=== PATIENT | female | born 1995 | race Caucasian/White ===

== ENCOUNTER 2023-09-17 10:02 | Outpatient (CLI) | payer BC, SELFPAY | END 2023-09-17 10:03 | disposition home or self-care (01) | LOC: NFLDREF 10-06 11:30 | PROVIDERS: PCP Family Medicine; Referring Provider Family Medicine; Visit Provider Advanced Practice Midwife | DX: Z34.03 Encounter for supervision of normal first pregnancy, third trimester (principal); Z83.49 Family history of other endocrine, nutritional and metabolic diseases | CPT/HCPCS: 84443; 86592 ==

== ENCOUNTER 2023-11-12 08:56 | Outpatient (CLI) | payer BC, SELFPAY | END 2023-11-12 08:57 | disposition home or self-care (01) | LOC: NFLDREF 11-29 16:06 | PROVIDERS: PCP Family Medicine; Referring Provider Family Medicine; Visit Provider Advanced Practice Midwife | DX: Z34.03 Encounter for supervision of normal first pregnancy, third trimester (principal); Z3A.36 36 weeks gestation of pregnancy | CPT/HCPCS: 87081; 87653 ==

== ENCOUNTER 2023-12-09 19:52 | Inpatient (IN) | payer BC, SELFPAY ==
[2023-12-09] VITALS (17 sets, daily range): BP systolic 87–133; BP diastolic 50–83; PULSE 81–126; RESP 20; TEMP 36.8; O2SAT 92–100; BMI 35.4
[2023-12-09] MEDS: AMPICILLIN 2 GM in 0.9 % SODIUM CHLORIDE Mini-bag 100 ML IVPB (20:04)
--- NOTE | 2023-12-09 20:33 | P.LDBA_ITS ---
Subjective History of Present Illness Date Seen: 12/09/23 Narrative: Patient is being admitted to Labor and Delivery for labor. She has had contractions since approximately 1100 today and around 1700 she reports more painful contractions. Unable to get an IV started on admission, she has declined GBS treatment at this time as a result. She is a 28 year old at 40.1 weeks gestation. Her full history and physical was dictated by Kellen on 11/19/23. Please see this for details. Patient also is requesting minimal or no cervical exams per her plan so no exam has been done at this time. Specific Issues/Plans partner Sid LEEpsychiatric lpn at [facility] of care at 22 wks from [place] OB H&P done by ALIZA Foreman on 11/19/23 IOL for post-dates scheduled 12/14 # ADHD not currently medicated, has used Adderall in the past for treatment # Hx Depression/Anxiety no current meds- hx multiple medications attempted discussed referral for med management if needed in Currently sees therapist uses hydroxyzine PRN # Iron deficiency hx pt did not think it was anemia, no supplement currently # Family hx of thyroid disorder. TSH at 28wks: 0.982, no repeat needed #GBS +, recommend antibiotics in labor OB Labs: ? Blood type: A+, antibody screen negative. ? Hgb: 14.3 ? Platelets: 221 ? Rubella: Immune ? Varicella: Immune Treponema: negative ? HBsAg: non-reactive ? Hep C: negative HIV: negative ? UC: negative GC/Chlamydia: negative/negative ? Pap (11/2022): negative ?NILM/ neg HPV Genetic screening: declined ? IMAGING: ? 1st trimester: Single live IUP with sonographic gestational age 6wks 6 days ?abd sonographic due date 12/08/2023 Anatomy scan: Normal OB ultrasound with concordance of clinical and sonographic dating. No intrinsic abnormalities noted on anatomic survey. ?Others: NA OB - Problem Based A/P Additional Plan (1) 40 weeks gestation of : Status: Acute (2) Distress from pain in labor: Status: Acute Plan Assessment:?? at 40.1 weeks gestation?? GBS positive? Patient is coping well with challenges of labor.?? Labor type: Spontaneous, Active labor? Category 1 FHR pattern.? complicated by: # ADHD not currently medicated, has used Adderall in the past for treatment # Hx Depression/Anxiety no current meds- hx multiple medications attempted discussed referral for med management if needed in Currently sees therapist uses hydroxyzine PRN # Iron deficiency hx pt did not think it was anemia, no supplement currently # Family hx of thyroid disorder. TSH at 28wks: 0.982, no repeat needed #GBS +, recommend antibiotics in labor Plan:?? * ?Admit to L & D? * IV access: unable to place and patient is declining at this time * Monitoring per policy: intermittent? * Candidate for analgesia of choice.? Planning unmedicated labor for pain management * Desires waterbirth.? Consent signed and Hep C negative * Expectant management at this time * GBS prophylaxis recommended at this time, patient is declining? * Patient encouraged to reposition and ambulate to promote physiologic labor and . * Anticipate ? OB Exam Physical Exam Vital signs: Pulse BP 89 133/83 12/09/23 19:46 12/09/23 19:46 Narrative: Vitals Reviewed Constitutional:? Alert and oriented x3 HEENT:? Normocephalic, atraumatic Neck:? Supple Lungs:? Clear to auscultation bilaterally Heart:? Regular rate and rhythm, no murmur, rub or gallop Abdomen:? Soft, nontender, and gravid. Vertex by Bolivar's, confirmed with cervical exam. Extremities:? No edema or erythema Cervix: deferred, per pt request, vertex by Bolivar's, membranes intact NST: 135 bpm/moderate variability/+accelerations/no decelerations/moderate contractions Detailed Labor and Delivery Exam Patient Gravid: Yes
--- NOTE | 2023-12-09 21:43 | PC.NURSE ---
Patient presented to the ED in labor without prior notification. Pt appeared to be in active labor, but declined cervical exam. Patient is GBS positive, so prophylactic antibiotics were prepared per ALIZA Figueroa. ROSA Cruz, ROSA Parker, and ROSA Thakur attempted to place IV to run prophylactic antibiotics, but attempts were not successful. The final attempt appeared successful, but when the infusion was started, the line infiltrated. The patient then moved into the birthing tub. ROSA Parker requested general warehouse associate Huseyin to come to the bedside to continue IV attempts. At this point, the patient stated she did not want another IV attempt. With Bruce Figueroa present, RN explained the risk of infection, and that per protocol the RN's could not make the decision to not give the antibiotics. The patient verbalized understanding, and stated that she did not want the medication, and declined the treatment. Bruce Figueroa present in conversation and aware of patient's choice.
--- NOTE | 2023-12-09 22:51 | P.OBPN_ITS ---
Subjective Date Seen: 12/09/23 Narrative: ?Emily has been coping well with labor pain/contractions. ?Sid and Shefali her supervisor lending activities are with her for support. ?She would like to try get an epidural for comfort and pain management at this time. She has been laboring in the waterbirth tub using nitrous for approximately 2.5 hours. She is currently up in the bathroom and nursing is attempting another IV start. ? Objective Exam: VSS, afebrile General Appearance:? Calm, cooperative. ?No acute distress. ? Psychiatric Exam: Alert and oriented, appropriate affect Abdomen: Gravid Ctx: ?Q 2-4 min apart. ? ? ?Strong FHTs: ?intermittently monitored FHR 150 with no audible decelerations. ? ? SVE: 8.5/90/+2 Membranes: Intact ? Vital Signs: Last Vital Signs Temp 98.2 F 12/09/23 21:00 Pulse 86 12/09/23 21:00 Resp 20 12/09/23 21:00 BP 113/76 12/09/23 21:00 Plan Plan: Assessment:?? at 40.1 gestation?? GBS positive Patient is coping well with challenges of labor.?? Labor type: Spontaneous, Active labor? ? complicated by: # ADHD not currently medicated, has used Adderall in the past for treatment # Hx Depression/Anxiety no current meds- hx multiple medications attempted discussed referral for med management if needed in Currently sees therapist uses hydroxyzine PRN # Iron deficiency hx pt did not think it was anemia, no supplement currently # Family hx of thyroid disorder. TSH at 28wks: 0.982, no repeat needed #GBS +, recommend antibiotics in labor Plan:?? Obtain IV access and prepare for epidural Antibiotic prophylaxis treatment per protocol once IV placed Continue with routine intrapartum cares as ordered.?? Patient encouraged to move and change positions to promote physiologic labor and .?? Nonpharmacologic comfort measures per patient preference. Candidate for analgesia of choice if desired. Requesting epidural at this time Anticipate progress to NVD. ?
[2023-12-09] MEDS: LACTATED RINGERS 1000 ML 1,000 ML 1200 ML IV (23:05)
[2023-12-09] MEDS: LIDOCAINE 2% (PF) 5 ML VIAL EPIDURAL (23:16)
[2023-12-09 23:20] LABS: Basophils Percent Auto 0.1 % (0.0-3.0); Eosinophils Percent Auto 0.1 % (0.0-7.0); Hematocrit 41.8 % (33.0-51.0); Hemoglobin* 14.6 gm/dL (12.0-16.0); Immature Granulocytes Pct Auto 1.6 %; Lymphocytes Percent Auto 9.8 % (20-44); Mean Corpuscular HGB Conc 35 gm/dL (32-36); Mean Corpuscular Hemoglobin 31 pg (26-34); Mean Corpuscular Volume 89 fL (80-100); Monocytes Percent Auto 3.4 % (0.0-11.0); Platelet Count* 187 K/uL (140-440); RDW Coefficient of Variation % 12.9 % (11.5-15.5); Red Blood Count 4.69 m/uL (4.00-5.20); White Blood Count* 15.81 K/uL (4.50-11.00)
[2023-12-09 23:25] LABS: Slide Review Reflex No
[2023-12-09] MEDS: ROPIVACAINE 0.2% 100 ml 100 ML 12 MG EPIDURAL (23:25)
[2023-12-09] MEDS: fentaNYL 250 MCG/5 ML inj 100 MCG EPIDURAL (23:25)
--- NOTE | 2023-12-09 23:36 | P.ANBPRC_ITS ---
PFSH PFSH Surgical History [place] teeth extracted ?K08.409 - Partial loss of teeth, unspecified cause, unspecified class (ICD- 10) Family History Paternal Grandmother Breast cancer Stroke Maternal Grandmother Lung cancer Colon cancer Father Coronary artery disease Myocardial infarction Alcohol dependence Social History What is your current living situation?: I presently have a place to live Problems where you live: no known problems In the past 12 months, utilities in danger of being shut off: no In past 12 months, lack of transportation kept you from medical appts, meetings, work, or getting things needed for daily living: no In the past 12 mos, have been you worried that your food would run out before you had money to buy more?: never true In the past 12 mos, the food you bought just didn't last and you didn't have money to buy more?: never true Smoking Status: Never smoker How often does anyone, including family, friends and others, physically hurt you : never How often does anyone, including family, friends and others, insult or talk down to you: never How often does anyone, including family, friends and others, threaten you with harm: never How often does anyone, including family, friends and others, scream or curse at you: never Little interest or pleasure in doing things: not at all Feeling down, depressed, or hopeless: not at all Meds Home Medications and Allergies Home Medications ?Medication ?Instructions ?Recorded ?Confirmed ?Type docosahexaenoic acid 200 mg mg PO 08/06/23 12/08/23 History capsule ( DHA) hydroxyzine HCl 25 mg tablet 25 mg PO Q8H PRN anxiety 08/06/23 12/08/23 History magnesium 200 mg tablet 200 mg PO QDAY 08/06/23 12/08/23 History omega-3 fatty acids 1,000 mg 1,000 mg PO QDAY 08/06/23 12/08/23 History capsule Allergies Allergy/AdvReac Type Severity Reaction Status Date / Time No Known Drug Allergies Allergy Verified 12/08/23 10:48 Results Labs Labs: Laboratory Results - last 24 hr 12/09/23 23:00 WBC 15.81 H RBC 4.69 Hgb 14.6 Hct 41.8 MCV 89 MCH 31 MCHC 35 RDW Coeff of Mary 12.9 Plt Count 187 Neut % (Auto) 85.0 H Lymph % (Auto) 9.8 L [place] % (Auto) 3.4 Eos % (Auto) 0.1 Baso % (Auto) 0.1 Neut # (Auto) 13.40 H Lymph # (Auto) 1.50 [place] # (Auto) 0.50 Eos # (Auto) 0.00 Baso # (Auto) 0.00 Abs Immat Gran (auto) 0.30 Imm/Tot Granulo (auto) 1.6 Vital Signs Vital Signs: Last Vital Signs Temp 98.2 F 12/09/23 21:00 Pulse 115 H 12/09/23 23:31 Resp 20 12/09/23 21:00 BP 107/58 L 12/09/23 23:31 Pulse Ox 93 12/09/23 23:35 Anesthesia Procedures Epidural Insertion Patient Location: OB Start Time: 23:00 Stop Time: 23:59 Start Date: 12/09/23 Stop Date: 12/09/23 Reason for Block: primary anesthetic Patient Position: sitting Performed By: Mikhail Lucia Preanesthetic Checklist: IV checked, risks and benefits discussed, surgical consent, monitors and equipment checked, pre-op evaluation, timeout performed and anesthesia consent Prep: chlorhexidine gluconate Monitoring: blood pressure monitoring, secured entrance monitor, continuous pulse oximetry and heart rate Approach: midline Vertebral Space: lumbar (1-5) Needle Type: Tuohy needle Injection Technique: continuous catheter Needle gauge: 17 Needle Length (cm): 10 cm Needle Insertion Depth (cm): 6 Catheter Gauge: 19 Catheter Type: multi-orifice Catheter at skin depth (cm): 12 Test Dose Result: negative and lidocaine 1.5% with epinephrine 1 to 200,000 Events: other
[2023-12-09] MEDS: PHENYLEPHRINE 100 MCG/ML SYRINGE IVP (23:55)
[2023-12-10] VITALS (40 sets, daily range): BP systolic 94–134; BP diastolic 51–84; PULSE 72–187; RESP 16–18; TEMP 36.6–37.4; O2SAT 96–98
[2023-12-10] MEDS: PHENYLEPHRINE 100 MCG/ML SYRINGE IVP (00:04)
[2023-12-10] MEDS: LACTATED RINGERS 1000 ML 1,000 ML 125 ML IV (01:39)
--- NOTE | 2023-12-10 02:26 | PM.OBPNL ---
Subjective Date Seen: 12/10/23 Narrative: ?Emily is coping well with labor pain/contractions. ?Sid and Shefali are with her for support. ?She would like to continue with her epidural for comfort and pain management.?She has now had two large pads changed with bright red bleeding. Cervical exam found bulging bag of fluid which ruptured with exam with clear fluid, complete dilation and +2 station. Objective Exam: VSS, afebrile General Appearance:? Calm, cooperative. ?No acute distress. ? Psychiatric Exam: Alert and oriented, appropriate affect Abdomen: Gravid Ctx: ?Q 2-3 min apart. ? ? ?Strong FHTs: ?Baseline: 135. ? ? Variability: moderate. ?Accels: +. ? ?Decels: ?variables. SVE: 10/100/+2 Membranes: ?SROM clear fluid Vital Signs: Last Vital Signs Temp 98.9 F 12/10/23 02:03 Pulse 85 12/10/23 02:10 Resp 18 12/10/23 02:03 BP 101/60 12/10/23 02:10 Pulse Ox 93 12/09/23 23:35 Plan Plan: Assessment:?? at 40.2 wks gestation?? GBS positive Patient is coping well with challenges of labor.?? Labor type: Spontaneous, Active labor? Category 1 FHR pattern.? complicated by: # ADHD not currently medicated, has used Adderall in the past for treatment # Hx Depression/Anxiety no current meds- hx multiple medications attempted discussed referral for med management if needed in Currently sees therapist uses hydroxyzine PRN # Iron deficiency hx pt did not think it was anemia, no supplement currently # Family hx of thyroid disorder. TSH at 28wks: 0.982, no repeat needed #GBS +, recommend antibiotics in labor Labor complicated by: vaginal bleeding with advanced dilation GBS positive treated with once dose of antibiotics Plan:?? Patient to begin pushing, close monitoring of bleeding and FHR changes Antibiotic prophylaxis treatment per protocol Continue with routine intrapartum cares as ordered.?? Patient encouraged to move and change positions to promote physiologic labor and .?? Epidural infusing per protocol Anticipate progress to NVD. ?
[2023-12-10] MEDS: AMPICILLIN 1 GM in 0.9 % SODIUM CHLORIDE Mini-bag 100 ML IVPB (02:40)
[2023-12-10] MEDS: CALCIUM CARBONATE 500 MG CHEW PO (02:58)
[2023-12-10] MEDS: OXYTOCIN 30 unit/500 ML in NS 30 UNIT/500 ML BAG 300 UNIT IVPB (04:44)
--- NOTE | 2023-12-10 05:36 | W.PM.OBVAGDE ---
OB Procedure Vag Delivery Mother Details Mother Details: The patient is a 28 year-old, 1, Para 0, admitted on 12/09/23 at 40.2 weeks gestation. : 1 Para: 1 Weeks Gestation: 40.2 Admission Date: 12/09/23 Additional Details Amniotic Membrane Status: SROM Amniotic Membrane Rupture Date: 12/10/23 Amniotic Membrane Rupture Time: 02:19 Amniotic Membrane Fluid Description: Clear Analgesia/Anesthesia Type: Epidural Waterbirth: No Pitcoin: Yes (for AMTSL) Labor Onset: 18:00 Complete: 02:19 Pushin:25 Heart: heart tones during second stage were continuously monitored. Moderate variability with variable decelerations. FHR was rising during last 30 minutes of pushing with baseline of 160. Delivery Details Delivery Date: 12/10/23 Delivery Time: 04:34 Route of delivery: Infant Gender: Female Infant Viability: Alive; Heart Rate Present Position at Delivery: OA Delivery Details: 28?y.o?at 40.2 weeks.? Emily arrived to the unit with strong contractions since 1700. She labored in the waterbirth tub initially. There was difficulty placing an IV at first and she was poked approximately 6 times. After this she declined additional attempts for IV placement and GBS antibiotics. After laboring in the tub for approximately 3 hours she then requested to have an epidural. Once she had an IV placed she was started on GBS prophylaxis per protocol. She then labored in bed with her epidural until I was called to the bedside for concerns about vaginal bleeding. RN reported patient had had bright red vaginal bleeding since epidural was placed and had needed to change a large white pad twice since bleeding had started. FHR continued to be Category 1 and on exam she was complete/100/+2. She then started pushing. ? ? She became complete at 0219.??She pushed in right and left side, hands and knees and semi fowlers positions effectively.??? At the end of pushing stage FHR became tachycardic for approximately the last 30 minutes with FHR baseline 160. Continued to have moderate variability and occasional variables. ? Spontaneous vaginal delivery at 0434 of?a viable? female .??Delivered in vertex OA position.??Shoulders delivered easily.? Spontaneous cry noted.??Infant placed on maternal abdomen.??Cord?was clamped and cut after a 5+ minute delay.??Nose and mouth were bulb suctioned.? Shoulder dystocia: no? Nuchal cord: yes times one, reduced? Meconium stained?fluid: no? Water : no? ? ? 8 at 1 minute and 9 at 5 minutes.? Weight is pending. ? Placenta delivered spontaneously and?complete?at 0443 with a?3 vessel?cord.?? Bleeding controlled with fundal massage and?pitocin?for AMTSL.? ? Mother and were stable after delivery.? ? Lacerations:? 2nd degree with extension up the left side of labia, repaired with 3-0?vicryl.?? Bleeding?post delivery?was: minimal. ?The fundus was firm to palpation.? Blood loss: 100?mL.? Blood loss measurement type: QBL? ? ? Sponge,?lap?and needles counts are correct.? Mother and infant were stable after delivery.? 1 Minute Interval Total Score: 8 5 Minute Interval Total Score: 9 Additional Details Shoulder Dystocia: No Placenta Delivery Time: 04:43 Placental Delivery Description: Spontaneous Delivery repair: Vicryl Procedure Done: Global Blood Loss: 100 Laceration: Perineal - 2nd Degree Blood Loss Measurement Type: QBL Bakri Used: Yes Sponge/Need Count Correct: Yes Cord Vessel Description: 3 Vessels, Nuchal Cord and Reduced Event Summary Status: Mother and were stable after delivery. Disposition: floor
[2023-12-10] MEDS: IBUPROFEN 600 MG TABLET PO ×3 (06:21→22:09)
--- NOTE | 2023-12-10 08:39 | PM.ANPOST ---
Post Anesthesia Note Post Anesthesia Note Patient seen: Inpatient Respiratory Status: adequate Cardiovascular Status: adequate Mental Status: baseline Pain: adequate Temp: baseline Anesthetic awareness: N/A Complications: none Follow care: none
[2023-12-10] MEDS: DOCUSATE SODIUM 100 MG CAPSULE PO (09:31)
[2023-12-10] MEDS: ACETAMINOPHEN 500 MG TABLET 1000 MG PO ×2 (09:31→19:26)
[2023-12-11] MEDS: IBUPROFEN 600 MG TABLET PO (03:55)
[2023-12-11 04:30] VITALS: BP 108/72; PULSE 98; RESP 16; TEMP 36.6; O2SAT 98
--- NOTE | 2023-12-11 07:52 | P.DS_ITS ---
DS: Providers Provider Date Seen: 12/11/23 Date of admission: 12/09/23 19:52 Primary care physician: Luci Wesley DO Admitting Clinician: Kelly Figueroa CNM Attending Physician on discharge: Shasha Duque APRN, CNM Date of Discharge: 12/11/23 DS: Diagnosis Discharge Diagnosis (1) care and examination immediately after delivery: Status: Acute (2) Lactating mother: Status: Acute (3) Anxiety: Status: Acute (4) Depression: Status: Acute Exam Narrative: Exam Narrative: GENERAL APPEARANCE:? normal affect, alert, no distress MOOD:? appropriate CHEST:? clear to auscultation HEART:? regular rate and rhythm ABDOMEN:? soft, non-tender the uterine fundus is At Umbilicus, Midline and is appropriate for the stage of recovery. PERINEUM:? mild edema of the perineum, there is a Perineal Laceration,?2nd degree, that is healing well. EXTREMITIES:? normal and no edema Const: Vital Signs, click to edit/add: Vital Signs - 24 hr 12/10/23 09:27 12/10/23 12:12 12/10/23 15:29 Temperature 98.5 F 98.2 F 98.3 F Pulse Rate [Pulse Oximeter] 91 97 98 Respiratory Rate 16 16 16 Blood Pressure [Ri ght Arm] 120/81 97/58 L 102/66 Pulse Oximetry 96 96 97 Oxygen Delivery Me thod Room Air Room Air Room Air 12/10/23 19:28 12/10/23 23:09 12/11/23 04:30 Temperature 98.0 F 98.2 F 97.8 F Pulse Rate [Pulse Oximeter] 100 105 H 98 Respiratory Rate 18 18 16 Blood Pressure [Ri ght Arm] 118/84 112/68 108/72 Pulse Oximetry 98 98 98 Oxygen Delivery Me thod Room Air Room Air Room Air Documenting provider has reviewed patient's vital signs: yes OB - DS: Summary Hospital Course Hospital Course: Emily is a 28 y.o. G 1 P 1 who was admitted to L & D for spontaneous onset of labor. ?She had a NVD that was uncomplicated. The patient feels well. ?The pain is well controlled with current medications. ?She has no new complaints. ?She is breast feeding and reports things are going well. the patient has done well.? Vitals have been stable.? She has remained afebrile.? Has a good appetite, is tolerating a general diet. ?She is voiding without difficulty.? She is passing gas and has not had a bowel movement.? She is ambulating and denies any dizziness.? Has small amount of rubra lochia. She is planning condoms for prevention. Problems: none plan: Discharge home with baby. Follow up in 2 weeks and 6 weeks. , may see if needed Peripartum Data delivery method: Vaginal Laceration description: Perineal - 2nd Degree complications: none Infant Gender: Female Infant Discharge Plan: Home Status at Discharge Functional status at discharge: independent ambulation Overall status at discharge: patient is progressing back to baseline Time Spent with Patient Time attestation: Total time spent providing and/or coordinating discharge services: Discharge Plan Discharge Disposition: Home, Self-Care Date of Admission: 12/09/23 19:52 Attending Provider on Discharge: Shasha Duque Primary Care Provider: Luci Wesley Condition: Stable Anticipated Discharge Date/Time: 12/11/23 12:00 Discharge Medications: New acetaminophen 500 mg Tablet 1,000 mg PO Q6H PRNQty: 0 0RF docusate sodium 100 mg Capsule 100 mg PO DAILY Qty: 90 0RF ibuprofen 600 mg Tablet 600 mg PO Q6H PRNQty: 60 0RF Continued DHA 200 mg capsule 200 mg PO omega-3 fatty acids 1,000 mg capsule 1,000 mg PO QDAY magnesium 200 mg tablet 200 mg PO QDAY hydroxyzine HCl 25 mg tablet 25 mg PO Q8H PRN (Reason: anxiety) Discharge Orders: Discharge Order (Routine); Ordered 12/11/23 Ordered By: Shasha Duque Patient Education: OB Over the Counter Medication Information, OB Vaginal/Breast Feeding Additional Instructions: Discharge instructions were reviewed with the patient including signs and symptoms of infection and home going medications Nothing vaginally for 6 weeks: no tampons or intercourse Do not drive while taking narcotic pain medication(s) Off Work or School for 6 weeks 2-week visit: discuss feeding concerns, review control options and screen for anxiety/depression. 6-week visit for an annual exam. consultation services are available to all mothers and babies for the first year after delivery.? To make an appointment, please call [phone]. Activity Level: Activity as Tolerated Discharge Diet: Regular Follow Up Appointments: [facility] [Provider Group] Forms: [facility] [employer] Info Instructions
[2023-12-11] MEDS: ACETAMINOPHEN 500 MG TABLET 1000 MG PO (07:57)
[2023-12-11 08:29] VITALS: TEMP -16.1; TEMP 3
[2023-12-11] MEDS: BENZOCAINE/MENTHOL SPRAY 85 GM AEROSOL 1 APPLIC TOPICAL (11:50)
[2023-12-11 23:02] LABS: Rapid Plasma Reagin (RPR) Non Reactive (Non Reactive)
== END 2023-12-11 12:15 | disposition home or self-care (01) | DRG 560 ==
LOC: OB OUT 19:53 → OB 12-10 14:43
PROVIDERS: Admitting Provider Advanced Practice Midwife; PCP Family Medicine; Visit Provider Advanced Practice Midwife
DX: O70.1 Second degree perineal laceration during delivery (principal); O99.344 Other mental disorders complicating childbirth; F41.9 Anxiety disorder, unspecified; F32.A Depression, unspecified; F90.9 Attention-deficit hyperactivity disorder, unspecified type; Z3A.40 40 weeks gestation of pregnancy; Z37.0 Single live birth; O99.824 Streptococcus B carrier state complicating childbirth; E61.1 Iron deficiency
CPT/HCPCS: 01967; 36415; 85025; 86592; 86850; 86900; 86901; 88307; G0463; A9270; J0290; J2371; J2795; J3010; J7120

== ENCOUNTER 2023-12-13 18:46 | Emergency (ER) | payer BC, SELFPAY ==
[2023-12-13 18:49] VITALS: BP 122/86; PULSE 103; RESP 18; TEMP 37.1; O2SAT 97; BMI 34.0
--- NOTE | 2023-12-13 19:00 | ED_ITS ---
HPI - General Adult General Chief complaint: Hypertension Stated complaint: Hypertension Time Seen by Provider: 12/13/23 18:49 History of Present Illness HPI narrative: 3 days post pardum. this morning told doctor that feet were swollen. checked bp and 135/85. noticed yellow foul discharge. when she got home temp 100. called primary and told to be seen. watching bp today. 143/95 and went to [facility] who sent pt here. states having a lot of vaginal pain where stitches are. taking ibuprofen and tylenol without much relief. pt had large blood clot on placenta and sent it in. pt says results were back today but no one called her about it. 28-year-old woman presenting to the emergency department Related Data Home Medications ?Medication ?Instructions ?Recorded ?Confirmed docosahexaenoic acid 200 mg 200 mg PO 08/06/23 12/08/23 capsule ( DHA) hydroxyzine HCl 25 mg tablet 25 mg PO Q8H PRN anxiety 08/06/23 12/10/23 magnesium 200 mg tablet 200 mg PO QDAY 08/06/23 12/10/23 omega-3 fatty acids 1,000 mg 1,000 mg PO QDAY 08/06/23 12/10/23 capsule Previous Rx's ?Medication ?Instructions ?Recorded acetaminophen 500 mg tablet 1,000 mg (2 x 500 mg) PO Q6H PRN 12/11/23 #0 tabs docusate sodium 100 mg capsule 100 mg PO DAILY #90 caps 12/11/23 ibuprofen 600 mg tablet 600 mg PO Q6H PRN #60 tabs 12/11/23 Allergies Allergy/AdvReac Type Severity Reaction Status Date / Time No Known Drug Allergies Allergy Verified 12/10/23 00:30 PFSH PFSH Surgical History [place] teeth extracted ?K08.409 - Partial loss of teeth, unspecified cause, unspecified class (ICD- 10) Family History Paternal Grandmother Breast cancer Stroke Maternal Grandmother Lung cancer Colon cancer Father Coronary artery disease Myocardial infarction Alcohol dependence Social History What is your current living situation?: I presently have a place to live Problems where you live: no known problems In the past 12 months, utilities in danger of being shut off: no In past 12 months, lack of transportation kept you from medical appts, meetings, work, or getting things needed for daily living: no In the past 12 mos, have been you worried that your food would run out before you had money to buy more?: never true In the past 12 mos, the food you bought just didn't last and you didn't have money to buy more?: never true Smoking Status: Never smoker How often does anyone, including family, friends and others, physically hurt you : never How often does anyone, including family, friends and others, insult or talk down to you: never How often does anyone, including family, friends and others, threaten you with harm: never How often does anyone, including family, friends and others, scream or curse at you: never Little interest or pleasure in doing things: not at all Feeling down, depressed, or hopeless: not at all Exam Const: Vital Signs, click to edit/add: Vital Signs - 24 hr 12/13/23 18:49 Temperature 98.8 F Pulse Rate [Pulse Oximeter] 103 H Respiratory Rate 18 Blood Pressure [Ri ght Upper Arm] 122/86 Pulse Oximetry 97 Oxygen Delivery Me thod Room Air Course Vital Signs Vital signs: Initial Vital Signs Temperature 98.8 F 12/13/23 18:49 Temperature Source Temporal Artery Scan 12/13/23 18:49 Pulse Rate 103 H 12/13/23 18:49 Respiratory Rate 18 12/13/23 18:49 Blood Pressure 122/86 12/13/23 18:49 Blood Pressure Mean 98 12/13/23 18:49 Blood Pressure Position Sitting 12/13/23 18:49 Pulse Oximetry 97 12/13/23 18:49 Oxygen Delivery Method Room Air 12/13/23 18:49 Vital Signs Temperature 98.8 F 12/13/23 18:49 Pulse Rate 103 H 12/13/23 18:49 Respiratory Rate 18 12/13/23 18:49 Blood Pressure 122/86 12/13/23 18:49 Pulse Oximetry 97 12/13/23 18:49 Oxygen Delivery Method Room Air 12/13/23 18:49 Temperature 98.8 F 12/13/23 18:49 Pulse Rate 103 H 12/13/23 18:49 Respiratory Rate 18 12/13/23 18:49 Blood Pressure 122/86 12/13/23 18:49 Pulse Oximetry 97 12/13/23 18:49 Oxygen Delivery Method Room Air 12/13/23 18:49 Discharge Plan Discharge Prescriptions: No Action DHA 200 mg capsule 200 mg PO omega-3 fatty acids 1,000 mg capsule 1,000 mg PO QDAY magnesium 200 mg tablet 200 mg PO QDAY hydroxyzine HCl 25 mg tablet 25 mg PO Q8H PRN (Reason: anxiety) acetaminophen 500 mg Tablet 1,000 mg PO Q6H PRNQty: 0 0RF docusate sodium 100 mg Capsule 100 mg PO DAILY Qty: 90 0RF ibuprofen 600 mg Tablet 600 mg PO Q6H PRNQty: 60 0RF Follow Up/Referrals: Luci Wesley DO [Primary Care Provider] -
[2023-12-13 19:29] LABS: Lactate* < 0.4 mmol/L (0.5-1.9)
[2023-12-13 19:38] LABS: Basophils Absolute Auto 0.01 K/uL (0.00-0.30); Basophils Percent Auto 0.1 % (0.0-3.0); Eosinophils Percent Auto 1.2 % (0.0-7.0); Hematocrit 36.1 % (33.0-51.0); Hemoglobin* 12.1 gm/dL (12.0-16.0); Immature Granulocytes Abs Auto 0.12 K/uL (0.00-0.30); Immature Granulocytes Pct Auto 1.5 %; Lymphocytes Percent Auto 13.7 % (20-44); Mean Corpuscular HGB Conc 34 gm/dL (32-36); Mean Corpuscular Hemoglobin 31 pg (26-34); Mean Corpuscular Volume 93 fL (80-100); Monocytes Percent Auto 6.3 % (0.0-11.0); Neutrophils Percent Auto 77.2 % (42.0-72.0); Platelet Count* 164 K/uL (140-440); RDW Coefficient of Variation % 13.1 % (11.5-15.5); Red Blood Count 3.89 m/uL (4.00-5.20); White Blood Count* 8.24 K/uL (4.50-11.00)
[2023-12-13 19:44] LABS: Albumin* 3.5 g/dL (3.3-5.0); Chloride* 106 mmol/L (96-114); Sodium* 136 mmol/L (135-149)
[2023-12-13 19:45] LABS: Potassium* 4.1 mmol/L (3.6-5.1)
[2023-12-13 19:46] LABS: Creatinine* 0.7 mg/dL (0.5-1.5); Est. Creatinine Clearance* 123.93; Estimated Glomerular Filt Rate 120 ml/min
[2023-12-13 19:47] LABS: Alanine Aminotransferase* 137 U/L (4-35); Alkaline Phosphatase* 118 U/L (40-150); Anion Gap 7 mEq/L (7-15); Aspartate Amino Transferase* 137 U/L (12-35); Bilirubin Direct* 0.1 mg/dL (0.0-0.5); Bilirubin Total* 0.4 mg/dL (0.1-1.5); Blood Urea Nitrogen* 17 mg/dL (5-24); Calcium* 9.3 mg/dL (8.4-10.6); Carbon Dioxide* 23 mmol/L (20-32); Glucose* 89 mg/dL (60-115); Total Protein* 6.3 g/dL (6.0-8.3)
[2023-12-13 19:54] LABS: Slide Review Reflex No
[2023-12-13 20:14] LABS: PCR FLU A Negative PCR FLU A (Negative); PCR FLU B Negative PCR FLU B (Negative); SARS PCR* POSITIVE SARS-CoV-2 (Negative)
[2023-12-13 20:17] VITALS: BP 111/78
[2023-12-13 20:18] LABS: Appearance Urine Clear (Clear); Bilirubin Urine Negative (Negative); Blood Urine Trace-lysed (Negative); Color Urine Yellow (Yellow); Glucose Urine Negative (Negative); Ketones Urine Negative (Negative); Leukocyte Esterase Urine Negative (Negative); Nitrite Urine Negative (Negative); Protein Urine Negative (Negative); Specific Gravity Urine 1.015 (1.000-1.030)
[2023-12-13 20:19] VITALS: PULSE 97; RESP 18
[2023-12-13 20:22] VITALS: BP 118/71
[2023-12-13 20:29] LABS: RBC Urine 0-2 (0-2); WBC Urine 0-2 (0-5)
[2023-12-13 20:30] LABS: Amorphous Sediment Urine Few
--- NOTE | 2023-12-13 20:37 | ED.GENADULT ---
HPI - General Adult General Chief complaint: Hypertension Stated complaint: Hypertension Time Seen by Provider: 12/13/23 18:49 Source: patient Mode of arrival: ambulatory Limitations: no limitations History of Present Illness HPI narrative: 28-year-old female coming in today with generalized not feeling well, fever. Patient is day 3 status post normal spontaneous vaginal delivery of a healthy baby girl. Patient is complaining of perineal pain. She did have a second-degree laceration that was repaired. She is concerned that it might be infected low. She states that she woke up this morning did not feel well, felt achy. Denies cough for changes in her appetite. Denies increase in dysuria, frequency or urgency. Did have a fever which she took Tylenol for about an hour and half prior to presenting to the ER. She denies worsening abdominal pain, has not had increased bleeding. She has been changing her pad every 2-3 hours, pat is not saturated. This is not changed. She denies any skin rashes. She is , milk came in today. She denies any redness of the breasts. She was seen in the urgent care told to come to the ER for further management. Patient does state that her blood pressure at home was 143 over low 90s, 138 over high 80s in the urgent care. This is her 1st baby. Patient is on a vitamin, hydroxyzine as needed for anxiety. Related Data Home Medications ?Medication ?Instructions ?Recorded ?Confirmed docosahexaenoic acid 200 mg 200 mg PO 08/06/23 12/08/23 capsule ( DHA) hydroxyzine HCl 25 mg tablet 25 mg PO Q8H PRN anxiety 08/06/23 12/10/23 magnesium 200 mg tablet 200 mg PO QDAY 08/06/23 12/10/23 omega-3 fatty acids 1,000 mg 1,000 mg PO QDAY 08/06/23 12/10/23 capsule Previous Rx's ?Medication ?Instructions ?Recorded acetaminophen 500 mg tablet 1,000 mg (2 x 500 mg) PO Q6H PRN 12/11/23 #0 tabs docusate sodium 100 mg capsule 100 mg PO DAILY #90 caps 12/11/23 ibuprofen 600 mg tablet 600 mg PO Q6H PRN #60 tabs 12/11/23 Allergies Allergy/AdvReac Type Severity Reaction Status Date / Time No Known Drug Allergies Allergy Verified 12/10/23 00:30 Review of Systems Status of ROS: Reports: 10 or more systems reviewed and unremarkable except as noted in History and below PFSH PFSH Surgical History [place] teeth extracted ?K08.409 - Partial loss of teeth, unspecified cause, unspecified class (ICD-10) Family History Paternal Grandmother Breast cancer Stroke Maternal Grandmother Lung cancer Colon cancer Father Coronary artery disease Myocardial infarction Alcohol dependence Social History What is your current living situation?: I presently have a place to live Problems where you live: no known problems In the past 12 months, utilities in danger of being shut off: no In past 12 months, lack of transportation kept you from medical appts, meetings, work, or getting things needed for daily living: no In the past 12 mos, have been you worried that your food would run out before you had money to buy more?: never true In the past 12 mos, the food you bought just didn't last and you didn't have money to buy more?: never true Smoking Status: Never smoker Do you use any of these nicotine containing products: None Second hand tobacco smoke exposure: No How often do you have a drink containing alcohol: never AUDIT-C Alcohol total score: 0 Non-prescribed substance use: denies use How often does anyone, including family, friends and others, physically hurt you: never How often does anyone, including family, friends and others, insult or talk down to you: never How often does anyone, including family, friends and others, threaten you with harm: never How often does anyone, including family, friends and others, scream or curse at you: never Little interest or pleasure in doing things: not at all Feeling down, depressed, or hopeless: not at all service: No Exam Narrative: Exam Narrative: Well-nourished well-developed patient in no acute distress. Alert and oriented. Answers questions appropriately. Mood and affect are appropriate. Thoughts are goal oriented and rational. No tangential or magical thinking noted. Patient speaks in full sentences without needing to catch her breath. HEENT: Normocephalic atraumatic. Pupils are equally round reactive to light. Extraocular muscles are intact. Conjunctivae are moist without any icterus noted. Moist mucous membranes. Posterior pharynx is normal. Neck is soft without any lymphadenopathy or thyromegaly. No masses are appreciated. Cardiovascular: Heart is regular rate and rhythm S1 and S2 are present without any murmurs. Lungs: Clear to auscultation bilaterally no wheezes rhonchi or rales are appreciated. Patient takes deep breaths without any discomfort. Abdomen: Soft and nondistended with normal bowel sounds. She does have mild uterine tenderness as expected. Extremities: Bilateral lower extremities are without pitting edema, does have some swelling which is also expected. Normal DP and PT pulses. Skin: Well perfused without any obvious rashes. 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 CBC was unremarkable, normal hemoglobin and platelet count. Chemistries are unremarkable. Lactate was less than 0.4. LFTs were elevated with an AST of 137 ALT of 137. Urine analysis was unremarkable. Negative influenza, COVID positive. Blood pressures remained well below 140/90 while she was here. I did consult with Dr. Still, she recommended daily blood pressure monitoring, follow-up at the 2 week appointment with repeat LFTs. Vital Signs Vital signs: Initial Vital Signs Temperature 98.8 F 12/13/23 18:49 Temperature Source Temporal Artery Scan 12/13/23 18:49 Pulse Rate 103 H 12/13/23 18:49 Respiratory Rate 18 12/13/23 18:49 Blood Pressure 122/86 12/13/23 18:49 Blood Pressure Mean 98 12/13/23 18:49 Blood Pressure Position Sitting 12/13/23 18:49 Pulse Oximetry 97 12/13/23 18:49 Oxygen Delivery Method Room Air 12/13/23 18:49 Vital Signs Temperature 98.8 F 12/13/23 18:49 Pulse Rate 103 H 12/13/23 18:49 Respiratory Rate 18 12/13/23 18:49 Blood Pressure 122/86 12/13/23 18:49 Pulse Oximetry 97 12/13/23 18:49 Oxygen Delivery Method Room Air 12/13/23 18:49 Temperature 98.8 F 12/13/23 18:49 Pulse Rate 97 12/13/23 20:19 Respiratory Rate 18 12/13/23 20:19 Blood Pressure 111/78 12/13/23 20:17 Pulse Oximetry 97 12/13/23 18:49 Oxygen Delivery Method Room Air 12/13/23 18:49 Medical Decision Making MDM Narrative Medical decision making narrative: 28-year-old female day 3 status post normal spontaneous vaginal delivery, presenting positive for COVID-19. Patient is . We discussed symptomatic treatment. Monitor BPs once daily. Call OB is greater than 140/90 Call Ob if you develop right upper quadrant or epigastric pain. Repeat LFts at 2 week post visit. Lab Data Lab results reviewed: Yes I reviewed the patient's lab results Labs: Lab Results 12/13/23 12/13/23 12/13/23 Range/Units 19:18 19:23 20:11 WBC 8.24 (4.50-11.00) K/uL RBC 3.89 L (4.00-5.20) m/uL Hgb 12.1 (12.0-16.0) gm/dL Hct 36.1 (33.0-51.0) % MCV 93 (80-100) fL MCH 31 (26-34) pg MCHC 34 (32-36) gm/dL RDW Coeff of Mary 13.1 (11.5-15.5) % Plt Count 164 (140-440) K/uL Neut % (Auto) 77.2 H (42.0-72.0) % Lymph % (Auto) 13.7 L (20-44) % [place] % (Auto) 6.3 (0.0-11.0) % Eos % (Auto) 1.2 (0.0-7.0) % Baso % (Auto) 0.1 (0.0-3.0) % Neut # (Auto) 6.40 (1.7-7.0) K/uL Lymph # (Auto) 1.10 (0.90-2.90) K/uL [place] # (Auto) 0.50 (0.00-0.90) K/UL Eos # (Auto) 0.10 (0.00-0.50) K/uL Baso # (Auto) 0.01 (0.00-0.30) K/uL Abs Immat Gran (auto) 0.12 (0.00-0.30) K/uL Imm/Tot Granulo (auto) 1.5 % Sodium 136 (135-149) mmol/L Potassium 4.1 (3.6-5.1) mmol/L Chloride 106 (96-114) mmol/L Carbon Dioxide 23 (20-32) mmol/L Anion Gap 7 (7-15) mEq/L BUN 17 (5-24) mg/dL Creatinine 0.7 (0.5-1.5) mg/dL Estimated Creat Clear 123.93 Estimated GFR 120 ml/min Glucose 89 (60-115) mg/dL Lactate < 0.4 L (0.5-1.9) mmol/L Calcium 9.3 (8.4-10.6) mg/dL Total Bilirubin 0.4 (0.1-1.5) mg/dL Direct Bilirubin 0.1 (0.0-0.5) mg/dL AST 137 H (12-35) U/L ALT 137 H (4-35) U/L Alkaline Phosphatase 118 (40-150) U/L Total Protein 6.3 (6.0-8.3) g/dL Albumin 3.5 (3.3-5.0) g/dL Urine Color Yellow (Yellow) Urine Appearance Clear (Clear) Urine pH 7.0 (5.0-8.5) Ur Specific [place] 1.015 (1.000-1.030) Urine Protein Negative (Negative) Urine Glucose (UA) Negative (Negative) Urine Ketones Negative (Negative) Urine Blood Trace-lysed A (Negative) Urine Nitrite Negative (Negative) Urine Bilirubin Negative (Negative) Urine Urobilinogen 1.0 (0.2-1.0) Ur Leukocyte Esterase Negative (Negative) Urine RBC 0-2 (0-2) Urine WBC 0-2 (0-5) Ur Squamous Epith Cells None (None-Few) Amorphous Sediment Few A (None) Urine Bacteria None (None) SARS-CoV-2 (PCR) POSITIVE SARS-CoV-2 A (Negative) Influenza Type A (PCR) Negative PCR FLU A (Negative) Influenza Type B (PCR) Negative PCR FLU B (Negative) Discharge Plan Discharge Clinical Impression: COVID-19 Patient Disposition: Home, Self-Care Condition: Stable Additional Instructions: Monitor your blood pressure once daily. Call your OB is greater than 140/90. Call your OB if you develop abdominal pain, specifically on the right side of the upper abdomen or right in the center, above the belly button. Follow-up at your 2 week visit to repeat your liver enzymes which were elevated today- this can be seen with COVID-19 infections. Recommend you wear a mask at home for the next 7 days to decrease exposure to the baby. Prescriptions: No Action DHA 200 mg capsule 200 mg PO omega-3 fatty acids 1,000 mg capsule 1,000 mg PO QDAY magnesium 200 mg tablet 200 mg PO QDAY hydroxyzine HCl 25 mg tablet 25 mg PO Q8H PRN (Reason: anxiety) acetaminophen 500 mg Tablet 1,000 mg PO Q6H PRNQty: 0 0RF docusate sodium 100 mg Capsule 100 mg PO DAILY Qty: 90 0RF ibuprofen 600 mg Tablet 600 mg PO Q6H PRNQty: 60 0RF Follow Up/Referrals: Luci Wesley DO [Primary Care Provider] - Stand Alone Forms: iRewardChart Info Instructions
[2023-12-13 20:42] VITALS: BP 120/85
== END 2023-12-13 21:00 | disposition home or self-care (01) ==
PROVIDERS: Emergency Provider Family Medicine; PCP Family Medicine
DX: U07.1 COVID-19 (principal)
CPT/HCPCS: 36415; 80048; 80076; 81001; 83605; 85025; 87086; 87631; 99283; 99284